=== PATIENT | female | born 1990 | race Hispanic/Latino ===

== ENCOUNTER 2023-09-08 12:46 | Emergency (ER) | payer BC ==
[~2023-09-08] VITALS: Ht 152.4 cm; Wt 68.0 kg
[2023-09-08] MEDS ORDERED: PANTOPRAZOLE SO40 MG PO (15:12)
[2023-09-08 15:17] VITALS: PULSE 63; RESP 18; TEMP 98; O2SAT 100
== END 2023-09-08 15:25 | disposition home or self-care (01) ==
LOC: FSED 12:50
DX: R07.89 Other chest pain (principal); R00.2 Palpitations
CPT/HCPCS: 71046; 80048; 80076; 81003; 82553; 84484; 85025; 93005; 99284